=== PATIENT | male | born 1980 | race African-American/Black ===

== ENCOUNTER 2025-05-10 19:29 | Emergency (ER) | payer OTHER ==
[~2025-05-10] VITALS: Ht 180.3 cm; Wt 76.0 kg
[2025-05-10 19:39] VITALS: O2SAT 95
[2025-05-10] MEDS: CYCLOBENZAPRINE 10MG TABLET PO ONE (20:22)
[2025-05-10] MEDS: KETOROLAC 30MG/ML VIAL IM ONE (20:22)
[2025-05-10] MEDS: LIDOCAINE 5% PATCH TOP SCH (20:23)
[2025-05-10] MEDS: OXYCODONE HCL/ACETAMINOPHEN 5/325MG TABLET PO ONE (21:24)
[2025-05-10] MEDS ORDERED: IBUP-2030 MT (21:36)
[2025-05-10] MEDS ORDERED: LIDO-53 TP (21:36)
[2025-05-10] MEDS ORDERED: CYCL10TA21 MT (21:36)
[2025-05-10 21:43] VITALS: BP 155/88; PULSE 89; RESP 18; TEMP 36.6; O2SAT 96
== END 2025-05-10 21:46 | disposition home or self-care (01) ==
LOC: ER 19:29
DX: S22.39XA Fracture of one rib, unspecified side, initial encounter for closed fracture (principal); Z79.899 Other long term (current) drug therapy; Z55.6 Problems related to health literacy; Z88.5 Allergy status to narcotic agent; W10.9XXA Fall (on) (from) unspecified stairs and steps, initial encounter; Y93.89 Activity, other specified; Y92.89 Other specified places as the place of occurrence of the external cause; Y99.8 Other external cause status
CPT/HCPCS: 99285; 73502; 71101; 96372; J1885